=== PATIENT | female | born 1985 | race Caucasian/White ===

== ENCOUNTER 2019-04-05 15:01 | Emergency (ER) | payer OTHER ==
[~2019-04-05] VITALS: Wt 68.0 kg
[2019-04-05 15:16] VITALS: BP 130/68; PULSE 78; RESP 18
[2019-04-05] MEDS ORDERED: IBUP-1542 PO (15:33)
[2019-04-05] MEDS ORDERED: AMOX500C2 PO (15:34)
[2019-04-05] MEDS ORDERED: POLY10DR19 BOTH EYES (15:34)
--- NOTE | 2019-04-05 15:47 | ERD ---
ER Documentation Chief Complaint Chief Complaint LEFT EAR PAIN X 3 DAYS HPI Patient is a 33-year-old female presents ER for concerns of right ear pain x1 day. Patient denies any fevers or chills. Patient states she was recently sick and she does have mild cough and congestion. Patient also reports bilateral eye redness and yellow discharge. Patient reports crusting to eyelids. Patient denies any redness or swelling surrounding her eyes. Patient denies any contact lens use. No recent travel. No sick contacts. ROS All systems reviewed and are negative except as per history of present illness. Medications Home Meds Active Scripts Amoxicillin* (Amoxicillin*) 500 Mg Cap, 500 MG PO BID for 7 Days, CAP Prov:RONNIE TURPIN PA-C 04/05/19 Polymyxin B Sulfate-TMP* (Polymyxin B-TMP Eye Drops*) 10 Ml Drops, 1 DROP BOTH EYES QID for 7 Days, EA Prov:RONNIE TURPIN PA-C 04/05/19 Ibuprofen* (Motrin*) 600 Mg Tab, 600 MG PO Q6, #30 TAB Prov:RONNIE TURPIN PA-C 04/05/19 Allergies Allergies: Coded Allergies: No Known Allergy (Unverified , 04/05/19) PMhx/Soc Medical and Surgical Hx: pt denies Medical Hx, pt denies Surgical Hx Hx Alcohol Use: No Hx Substance Use: No Hx Tobacco Use: No Smoking Status: Never smoker FmHx Family History: No diabetes Physical Exam Vitals Vital Signs Date Temp Pulse Resp B/P (MAP) Pulse Ox O2 O2 Flow FiO2 Time Delivery Rate 04/05/19 99.0 78 18 130/68 99 15:16 (88) Physical Exam GENERAL: Well-developed, well-nourished female. Appears in no acute distress. HEAD: Normocephalic, atraumatic. EYES: Pupils are equally reactive bilaterally. EOMs grossly intact. Mild bilateral conjunctival erythema. No surrounding periorbital erythema swelling or ecchymosis noted. ENT: Right somatic membrane is erythematous and bulging. No mastoid tenderness or erythema noted bilaterally. Moist mucous membranes. No uvula deviation. No kissing tonsils. NECK: Supple. No meningismus. Normal range of motion of the neck. LUNG: Clear to auscultation bilaterally. No rhonchi, wheezing, rales or coarse breath sounds. HEART: Regular rate and rhythm. No murmurs, rubs or gallops. EXTREMITIES: Equal pulses bilaterally. No peripheral clubbing, cyanosis or edema. No unilateral leg swelling. NEUROLOGIC: Alert and oriented. Moving all four extremities without any difficulty. Normal speech. Steady gait. SKIN: Normal color. Warm and dry. No rashes or lesions. Procedures/MDM MEDICAL DECISION MAKING: This is a 33-year-old female presents the ER for concerns of right ear pain as well as bilateral eye redness x1 day. Vital signs were reviewed. Patient was afebrile. Patient was not hypoxic. At this time the patient presentation was consistent with otitis media and bacterial conjunctivitis. Patient will be treated with course of oral antibiotics as well as eyedrops. Low suspicion for periorbital cellulitis, orbital cellulitis, pneumonia, meningitis, sinusitis, otitis externa, mastoiditis, strep pharyngitis, epiglottitis or peritonsillar abscess. PRESCRIPTIONS: Amoxicillin, Polytrim eyedrops, ibuprofen DISCHARGE: At this time, patient is stable for discharge and outpatient management. Supportive therapies such as OTC throat lozenges, salt water gurgles, popsicles and jello discussed. I have instructed the patient to follow-up with his/her primary care physician in 1-2 days. I have instructed the patient to promptly return to the ER for any new or worsening symptoms including increased pain, swelling, fever, nausea, vomiting, weakness or difficulty breathing. The patient and/or family expressed understanding of and agreement with this plan. All questions were answered. Home care instructions were provided. Disclaimer: Inadvertent spelling and grammatical errors are likely due to EHR/dictation software use and do not reflect on the overall quality of patient care. Also, please note that the electronic time recorded on this note does not necessarily reflect the actual time of the patient encounter. Departure Diagnosis: Primary Impression: Otitis media Otitis media type: unspecified Chronicity: acute Qualified Codes: H66.90 - Otitis media, unspecified, unspecified ear Additional Impressions: Nasal congestion Conjunctivitis Conjunctivitis type: unspecified Laterality: right Qualified Codes: H10.9 - Unspecified conjunctivitis Condition: Fair Patient Instructions: Otitis Media, Abx Tx (Adult) Referrals: COMM[facility]ITY CLIN[facility] YOU HAVE RECEIVED A MEDICAL SCREENING EXAM AND THE RESULTS INDICATE THAT YOU DO NOT HAVE A CONDITION THAT REQUIRES URGENT TREATMENT IN THE EMERGENCY DEPARTMENT. FURTHER EVALUATION AND TREATMENT OF YOUR CONDITION CAN WAIT UNTIL YOU ARE SEEN IN YOUR DOCTORS OFFICE WITHIN THE NEXT 1-2 DAYS. IT IS YOUR RESPONSIBILITY TO MAKE AN APPOINTMENT FOR FOLOW-UP CARE. IF YOU HAVE A PRIMARY DOCTOR --you should call your primary doctor and schedule an appointment IF YOU DO NOT HAVE A PRIMARY DOCTOR YOU CAN CALL OUR PHYSICIAN REFERRAL HOTLINE AT IF YOU CAN NOT AFFORD TO SEE A PHYSICIAN YOU CAN CHOSE FROM THE FOLLOWING [facility] [address] [facility] [address] [facility] [address] [facility] [address] [facility] [address] [facility]. [facility] [address] [facility]. [facility] YOU HAVE RECEIVED A MEDICAL SCREENING EXAM AND THE RESULTS INDICATE THAT YOU DO NOT HAVE A CONDITION THAT REQUIRES URGENT TREATMENT IN THE EMERGENCY DEPARTMENT. FURTHER EVALUATION AND TREATMENT OF YOUR CONDITION CAN WAIT UNTIL YOU ARE SEEN IN YOUR DOCTORS OFFICE WITHIN THE NEXT 1-2 DAYS. IT IS YOUR RESPONSIBILITY TO MAKE AN APPOINTMENT FOR FOLOW-UP CARE. IF YOU HAVE A PRIMARY DOCTOR --you should call your primary doctor and schedule and appointment IF YOU DO NOT HAVE A PRIMARY DOCTOR YOU CAN CALL OUR PHYSICIAN REFERRAL HOTLINE AT . IF YOU CAN NOT AFFORD TO SEE A PHYSICIAN YOU CAN CHOSE FROM THE FOLLOWING [facility], [facility]1983 INSTITUTIONS: [facility] [address] [place] [address] [facility] [address] [place] [address] [facility] [address] [place] [address] Additional Instructions: Llame al doctor MAANA y helga reji DARIEN PARA DENTRO DE 1-2 ESQUIVEL.Dgale a la secretaria que nosotros le instruimos hacer esta darien.Avise o llame si pugh condicin se empeora antes de la darien. Regresa aqui si peor o no mejor. RONNIE TURPIN PA-C Apr 05, 2019 15:47
== END 2019-04-05 15:52 | disposition home or self-care (01) ==
LOC: FTE 15:01
DX: H66.91 Otitis media, unspecified, right ear (principal); H10.9 Unspecified conjunctivitis; R09.81 Nasal congestion
CPT/HCPCS: 99283